=== PATIENT | female | born 1990 | race Two or more races ===

== ENCOUNTER 2019-05-31 22:38 | Emergency (ER) | payer MEDICAID, OTHER ==
[~2019-05-31] VITALS: Ht 160 cm; Wt 93.6 kg
[2019-05-31] MEDS ORDERED: BUPIVACAINE HCL/PF 0.25% 10 ML VIAL INJ ONE (23:30)
[2019-05-31] MEDS ORDERED: ACETAMINOPHEN 500 MG TABLET PO ONE (23:30)
[2019-05-31] MEDS ORDERED: BACITRACIN 0.9 GM PACKET OINTMENT TP ONE (23:30)
[2019-05-31] MEDS ORDERED: IBUPROFEN 600 MG TABLET PO ONE (23:30)
[2019-06-01 01:00] VITALS: BP 122/85
== END 2019-06-01 01:09 | disposition home or self-care (01) ==
LOC: EMS 22:40
DX: S61.214A Laceration without foreign body of right ring finger without damage to nail, initial encounter (principal); Z88.5 Allergy status to narcotic agent; W45.8XXA Other foreign body or object entering through skin, initial encounter; Y93.89 Activity, other specified; Y92.89 Other specified places as the place of occurrence of the external cause; Y99.8 Other external cause status
CPT/HCPCS: 12001; 99283; J3490

== ENCOUNTER 2021-10-17 20:05 | Emergency (ER) | payer OTHER ==
[~2021-10-17] VITALS: Ht 160 cm; Wt 86.4 kg
[2021-10-17] MEDS ORDERED: KETOROLAC TROMETHAMINE 10 MG TABLET PO ONE (21:00)
[2021-10-17] MEDS ORDERED: GABA-1181 PO (21:55)
[2021-10-17] MEDS ORDERED: NAPR-1025 PO (21:55)
[2021-10-17 22:12] VITALS: BP 116/72
== END 2021-10-17 22:22 | disposition home or self-care (01) ==
LOC: EMS 20:59
DX: S63.641A Sprain of metacarpophalangeal joint of right thumb, initial encounter (principal); Z98.890 Other specified postprocedural states; Z88.8 Allergy status to other drugs, medicaments and biological substances; X50.0XXA Overexertion from strenuous movement or load, initial encounter; Y93.89 Activity, other specified; Y92.89 Other specified places as the place of occurrence of the external cause; Y99.8 Other external cause status
CPT/HCPCS: 99283

== ENCOUNTER 2023-08-15 08:44 | Emergency (ER) | payer MEDICAID, OTHER ==
[~2023-08-15] VITALS: Ht 160 cm; Wt 95.5 kg
[~2023-08-15 08:44] MED LIST: GABA-1181 PO; NAPR-1025 PO
[2023-08-15 08:48] VITALS: TEMP 98.5
[2023-08-15 11:07] LABS: APPEARANCE,URINE CLEAR (CLEAR); BILIRUBIN,URINE NEGATIVE (NEGATIVE); COLOR,URINE YELLOW (YELLOW); GLUCOSE, URINE (UA) NEGATIVE (NEGATIVE); KETONES,URINE NEGATIVE (NEGATIVE); LEUKOCYTE ESTERASE ,URINE NEGATIVE (NEGATIVE); NITRATE,URINE NEGATIVE (NEGATIVE); OCCULT BLOOD,URINE NEGATIVE (NEGATIVE); PH,URINE 5.5 (5.0-8.0); PROTEIN,URINE TRACE mg/dL (NEGATIVE); SPECIFIC GRAVITIY, URINE 1.033 (1.003-1.030); UROBILINOGEN,URINE <=1.0 mg/dL (<=1.0)
[2023-08-15 11:20] LABS: BACTERIA,URINE None Seen /HPF (None Seen); HCG,QUAL URINE NEGATIVE (NEGATIVE); RBC,URINE None Seen /HPF (0-2); SQUAMOUS EPITHELIAL CELL,UR Few /LPF (None Seen); WBC,URINE None Seen /HPF (0-5)
[2023-08-15] MEDS: METHOCARBAMOL 500 MG TABLET PO ONE (11:24)
[2023-08-15] MEDS: ACETAMINOPHEN 500 MG TABLET PO ONE (11:25)
[2023-08-15] MEDS: KETOROLAC TROMETHAMINE 60 MG/2 ML VIAL IM ONE (11:25)
[2023-08-15] MEDS ORDERED: ACET-66 PO (12:39)
[2023-08-15] MEDS ORDERED: METH-659 PO (12:39)
[2023-08-15] MEDS ORDERED: IBUP-1554 PO (12:39)
[2023-08-15 13:00] VITALS: BP 116/74; PULSE 76; RESP 16
== END 2023-08-15 14:01 | disposition home or self-care (01) ==
LOC: EMS 08:48
DX: S29.012A Strain of muscle and tendon of back wall of thorax, initial encounter (principal); Z98.890 Other specified postprocedural states; Z88.8 Allergy status to other drugs, medicaments and biological substances; X50.3XXA Overexertion from repetitive movements, initial encounter; Y93.89 Activity, other specified; Y92.89 Other specified places as the place of occurrence of the external cause; Y99.8 Other external cause status
CPT/HCPCS: 99285; 81001; 84703; 96372; J1885

== ENCOUNTER 2023-09-24 20:18 | Emergency (ER) | payer MEDICAID ==
[~2023-09-24] VITALS: Ht 160 cm; Wt 95.5 kg
[~2023-09-24 20:18] MED LIST changes: +ACET-66 PO; -GABA-1181 PO; +IBUP-1554 PO; +METH-659 PO; -NAPR-1025 PO
[2023-09-24 20:25] VITALS: BP 134/79; PULSE 109; RESP 16; TEMP 98.5
[2023-09-24] MEDS ORDERED: GUAIFDM PO (21:03)
[2023-09-24] MEDS ORDERED: BENZ-227 PO (21:03)
[2023-09-24] MEDS ORDERED: ACET-2080 PO (21:03)
[2023-09-24] MEDS: ACETAMINOPHEN/CODEINE 300-30 MG TABLET PO ONE (21:29)
[2023-09-24 21:34] LABS: INFLUENZA A-RTPCR,COMBO NEGATIVE (NEGATIVE); INFLUENZA B-RTPCR,COMBO NEGATIVE (NEGATIVE); RESPIRATORY SYNCYTIAL VRS-PCR NEGATIVE (NEGATIVE); SARS COVID19 RTPCR, COMBO NEGATIVE (NEGATIVE)
== END 2023-09-24 21:35 | disposition home or self-care (01) ==
LOC: EMS 20:22
DX: J02.8 Acute pharyngitis due to other specified organisms (principal); Z20.822 Contact with and (suspected) exposure to COVID-19; Z98.890 Other specified postprocedural states
CPT/HCPCS: 99283; 0241U; 87430